=== PATIENT | female | born 1960 | race Caucasian/White ===

== ENCOUNTER 2017-10-17 06:04 | Day surgery (SDC) | payer BC ==
[~2017-10-17 06:04] MED LIST: Lactated Ringers 1,000 ML IV SCH
[2017-10-17] MEDS ORDERED: DIPRIVAN 200 MG/20 ML IV ONE (06:05)
[2017-10-17 09:00] VITALS: O2SAT 97
[2017-10-17 09:06] VITALS: BP 131/76; PULSE 68
--- NOTE | 2017-10-17 10:59 | OP ---
SURGERY DATE/TIME: 10/17/2017 0753 PREOPERATIVE DIAGNOSIS: Screening exam. POSTOPERATIVE DIAGNOSIS: Normal colon. PROCEDURE: Colonoscopy. SURGEON: Dr. Zamora. ANESTHESIA: MAC. Medications given by anesthesia department. HISTORY: The patient is a 57 year-old white female presenting now for screening colonoscopy. The patient had some left lower quadrant abdominal pain which was concerning for diverticulitis but the patient has not had a previous colon exam performed. She now presents for screening colonoscopy. The patient was appraised of the risks of the procedure including the risk of perforation, phlebitis, untoward reaction to medication, bleeding and missed lesions. The patient verbalized her understanding and desired to have the procedure performed. DESCRIPTION OF PROCEDURE: The patient was given the medications by the anesthesia department. She had continuous pulse oximetry, ECG monitoring, intermittent blood pressure monitoring and tidal CO2 monitoring during the examination. She was placed in the left lateral decubitus position. A digital rectal examination was performed and revealed normal anal sphincter tone and no masses. The flexible Olympus pediatric colonoscope was used to intubate the rectum. A view of the colon was developed sequentially to the cecum. Upon insertion and withdrawal, including a retroflex view in the rectum, no mucosal lesions were encountered. The scope was removed from the patient who tolerated the procedure well and was sent back to OP recovery in good condition. The prep was noted to be fair to good.
== END 2017-10-17 09:15 | disposition home or self-care (01) ==
LOC: SDC 06:04
PROVIDERS: ATTEND Family Medicine
DX: Z12.11 Encounter for screening for malignant neoplasm of colon (principal)
CPT/HCPCS: J2704

== ENCOUNTER 2021-10-11 08:16 | Day surgery (SDC) | payer BC ==
--- NOTE | 2021-10-11 08:24 | HP ---
DATE OF SURGERY: 10/11/2021 HISTORY OF PRESENT ILLNESS: The patient is a 61-year-old with nausea, some right upper quadrant occasional low abdominal aches, some emesis at times. She had ultrasound that showed cholelithiasis. I feel she has acute exacerbation of symptomatic cholelithiasis, chronic cholecystitis. PAST MEDICAL HISTORY: Osteoarthritis. PAST SURGICAL HISTORY: Hysterectomy in the past. MEDICATIONS: Bee pollen capsule, vitamin D, diclofenac, Estradiol, etodolac, Krill [place] capsule (please see the patient's spelling), multivitamin, progesterone, testosterone, vitamin D3. ALLERGIES: PENICILLIN. FAMILY HISTORY: Heart disease, diabetes. SOCIAL HISTORY: No smoking or alcohol abuse. REVIEW OF SYSTEMS: Fourteen systems reviewed. No chest pain or palpitations. Other systems negative or noncontributory as above and per preadmission questionnaire. PHYSICAL EXAMINATION: GENERAL: No acute distress. HEENT: Sclerae nonicteric. NECK: No JVD. CHEST: Equal excursion, nonlabored breathing. CVS: Regular rate and rhythm. ABDOMEN: Soft. No peritoneal signs. EXTREMITIES: No significant edema. NEURO: Alert, oriented, moving extremities symmetrically. No gross motor deficits noted. RECTAL: Deferred timed to endoscopy exam. PSYCH: Appropriate mood and affect. IMPRESSION: Some right upper quadrant occasional low abdominal aches, some emesis at times. She had ultrasound that showed cholelithiasis. I feel the patient will benefit from cholecystectomy. Risks and benefits explained in detail including but not limited to bleeding or infection, risk of trocar injury or hernia, risk of bowel, bladder or blood vessel injury, risk of bile leak, bile duct injury, retained stone or sludge possibly requiring further procedure either open or ERCP, general risk of anesthesia, deep venous thrombosis, pulmonary embolism, pneumonia, perioperative risk of aches, pains, bloating, constipation and/or loose stools possibly even chronic in nature. The patient understands and agrees to the planned procedure, will proceed with laparoscopic cholecystectomy with possible open in the OR as an outpatient.
[2021-10-11] MEDS ORDERED: Levofloxacin 500MG/100ML D5W 500 MG/100 ML BAG IV SCH (08:30)
[2021-10-11] MEDS ORDERED: CLINDAMYCIN-D5W 900 MG/50 ML*** 900 MG/50 ML BAG IV SCH (08:30)
[2021-10-11] MEDS ORDERED: Lactated Ringers 1,000 ML IV ONE ×2 (08:51→10:04)
[2021-10-11] MEDS ORDERED: Levofloxacin 500MG/100ML D5W 500 MG/100 ML BAG IV ONE (08:51)
[2021-10-11] MEDS ORDERED: CLINDAMYCIN-D5W 900 MG/50 ML*** 900 MG/50 ML BAG IV ONE (08:51)
[2021-10-11] MEDS ORDERED: Sensorcaine 0.25% 10 ML ONE (10:04)
[2021-10-11] MEDS ORDERED: Zofran 4 MG/2 ML VIAL ONE (10:18)
[2021-10-11] MEDS ORDERED: DIPRIVAN 200 MG/20 ML IV ONE (10:18)
[2021-10-11] MEDS ORDERED: Xylocaine-Mpf 2% 5 Ml Vial ONE (10:18)
[2021-10-11] MEDS ORDERED: Decadron 4 MG INJ ONE (10:18)
[2021-10-11] MEDS ORDERED: Quelicin Fliptop 200 MG/10 ML ONE (10:18)
[2021-10-11] MEDS ORDERED: Zemuron 100 MG/10 ML ONE (10:18)
[2021-10-11] MEDS ORDERED: Versed 2 MG/2 ML Injection ONE (10:22)
[2021-10-11] MEDS ORDERED: SUBLIMAZE 100 MCG/2 ML ONE (10:24)
[2021-10-11] MEDS ORDERED: OFIRMEV 100 ML IV ONE (10:31)
[2021-10-11] MEDS ORDERED: Pre-Attached Lta Kit TP ONE (10:31)
[2021-10-11] MEDS ORDERED: DEXMEDETOMIDINE 80 MCG/20ML-NS IV ONE (11:11)
[2021-10-11] MEDS ORDERED: BRIDION 200MG/2ML IV ONE (11:59)
[2021-10-11] MEDS ORDERED: NORCO 5/325 MG PO PRN (13:24)
[2021-10-11 13:44] VITALS: O2SAT 94
[2021-10-11 14:03] VITALS: BP 138/80; PULSE 62
--- NOTE | 2021-10-12 08:57 | OP ---
SURGERY DATE/TIME: 10/11/2021 1056 PREOPERATIVE DIAGNOSIS: Acute exacerbation of chronic cholecystitis/cholelithiasis. POSTOPERATIVE DIAGNOSIS: Acute exacerbation of chronic cholecystitis/cholelithiasis. PROCEDURE: Laparoscopic cholecystectomy. SURGEON: Dr. Piero Mendieta. ANESTHESIA: General. ESTIMATED BLOOD LOSS: Minimal. INDICATIONS: As noted above. Risks and benefits explained in detail but not limited to and consent obtained. DESCRIPTION OF PROCEDURE AND FINDINGS: The patient was taken to the operating room. General anesthesia induced. Abdomen prepped and draped in usual sterile fashion. After official time out and no disagreement with planned procedure, a transverse incision made at the supraumbilical area. Fascia grasped and pulled upward. Veress needle inserted and tested with saline. Pneumoperitoneum accomplished insufflating opening pressure of 0-15. A 5 mm bladeless port and camera were inserted without difficulty followed by two - 5 mm right upper quadrant ports and 11 mm epigastric port. Careful inspection of peritoneal cavity revealed some omental adhesions and chronic inflammation of the gallbladder. The liver was smooth and no obvious nodules. At this point two - 5 mm right upper quadrant ports placed, 11 mm epigastric port. The gallbladder grasped retracted over the edge of the liver. Dissected carefully posterior lateral to anterior fashion. Slowly and carefully the cystic duct, infundibular area and main cystic artery isolated until critical view obtained anteriorly and posteriorly. Once this is accomplished, the cystic duct and cystic artery clipped x3 and divided in the usual fashion. The gallbladder slowly and carefully dissected free from its dense attachment to liver bed staying directly on the gallbladder wall clipping additional oozing side branches off the cystic artery and cystic vein as necessary directly on the gallbladder wall. Just prior to releasing final attachments to the anterior edge of the liver, the liver bed re-inspected. Clips noted in place in cystic duct and cystic artery stumps. No signs of any active bleeding or bile leakage. It was felt there was no benefit from drain placement. The gallbladder released from final attachments to anterior edge of the liver, placed in the provided sac, pulled up into the epigastric wound requiring slightly enlarging the fascial defect. The gallbladder was able to be pulled upward and passed off with the sac. This fascial defect was closed with puncture closure device with #1 Vicryl. Copious amount of irrigation accomplished lateral to the liver and subhepatic space irrigating clear. Liver bed re-inspected. Clips noted in place cystic duct and cystic artery stumps. No signs of any active bleeding or bile leakage. It was felt there was no need for drain placement. Pneumoperitoneum decompressed. The wound is irrigated out. Skin incision closed with 4-0 Vicryl. Steri-Strips and sterile dressing applied. The patient tolerated the procedure well. There were no immediate complications. I went out to the waiting area to look family to discuss the findings with. She was transferred to recovery in stable condition. There were no immediate complications.
== END 2021-10-11 14:10 | disposition home or self-care (01) ==
LOC: SDC 08:16
PROVIDERS: ATTEND Surgery
DX: K80.00 Calculus of gallbladder with acute cholecystitis without obstruction (principal)
CPT/HCPCS: J0330; J1100; J1956; J2250; J2405; J2704; J3010; A9270-GY